=== PATIENT | female | born 1940 | race Two or more races ===

== ENCOUNTER 2022-05-27 15:44 | Inpatient (IN) | payer MEDICARE, OTHER ==
[~2022-05-27] VITALS: Ht 152.4 cm; Wt 52.6 kg
[2022-05-27 16:34] LABS: HEMATOCRIT 28.3 % (31.2-41.9); MEAN CORPUSCULAR HEMOGLOBIN 30.6 uug (24.7-32.8); MEAN CORPUSCULAR VOLUME 91.3 fL (75.5-95.3); PLATELET COUNT (AUTO) 349 K/uL (179-408)
[2022-05-27 16:37] LABS: CARBON DIOXIDE 27 mmol/L (21-32); CHLORIDE 101 mmol/L (98-107); CREATININE 1.7 mg/dL (0.6-1.3); GLUCOSE 116 mg/dL (74-106); POTASSIUM 4.2 mmol/L (3.5-5.1); UREA NITROGEN, BLOOD 29 mg/dL (7-18)
[2022-05-27 16:43] LABS: ALANINE AMINOTRANSFERASE 16 U/L (14-59); ALKALINE PHOSPHATASE 77 U/L (50-136); ASPARTATE AMINOTRANSFERASE 19 U/L (15-37); BILIRUBIN,DIRECT < 0.1 mg/dL (0.0-0.2); BILIRUBIN,TOTAL 0.3 mg/dL (0.2-1.0); TOTAL PROTEIN, SERUM 7.7 g/dL (6.4-8.2)
--- NOTE | 2022-05-27 17:02 | NUR ---
[employer] Professional assumes care:(1st contact with patient) Patient is AOx4 with tolerable pains to both flank tubes. Pains are intermittent in nature and only with position changes, afebrile, skin warm and dry, respiration: easy and non-labored. Patient is for admission per Dr Cortés to evaluate the possible non-functioning left nephrostomy tube. Tube at the left flank is leaking.
--- NOTE | 2022-05-27 17:19 | NUR ---
Note carmen in EDM - 05/27/22 at 1944 by PARKER Pt. admitted to meddical-surgical floor , under care of EBONI Watson. Belongings List completed. MRSA swab collected. Patient will go to room 320 as soon as nurse Sales will take nursing report.
--- NOTE | 2022-05-27 17:19 | NUR ---
Pt. admitted to medical-surgical floor , under care of EBONI Watson. Belongings List completed. MRSA swab collected. Patient will go to room 320 as soon as nurse Henrry will take nursing report.
[2022-05-27] MEDS ORDERED: MAGN400O6 PO (17:33)
[2022-05-27] MEDS ORDERED: RETACRIT SQ (17:33)
[2022-05-27] MEDS ORDERED: LOSA1TAB39 PO (17:33)
[2022-05-27] MEDS ORDERED: OXYC5TAB3 PO (17:33)
[2022-05-27] MEDS ORDERED: NA P133E RC (17:33)
[2022-05-27] MEDS ORDERED: CRAN425C6 PO (17:33)
[2022-05-27] MEDS ORDERED: DOCU100C36 PO (17:33)
[2022-05-27] MEDS ORDERED: PANT40TA2 PO (17:33)
[2022-05-27] MEDS ORDERED: LABE300T2 PO (17:33)
[2022-05-27] MEDS ORDERED: ALLO100T PO (17:33)
[2022-05-27] MEDS ORDERED: AMLO-212 PO (17:33)
[2022-05-27] MEDS ORDERED: BISA10SU61 RC (17:33)
[2022-05-27] MEDS ORDERED: AMIN30LI2 PO (17:33)
[2022-05-27] MEDS ORDERED: ATOR20TA PO (17:33)
[2022-05-27] MEDS ORDERED: ACET-2154 PO (17:33)
[2022-05-27] MEDS ORDERED: MORPHINE SULFATE 2 MG/1 ML DISP.SYRIN IM ONE (18:00)
[2022-05-27 18:20] VITALS: BP 103/45
[2022-05-27] MEDS ORDERED: REMEDY ESSENTIAL ZINC PASTE 113 GM TP PRN (19:00)
[2022-05-27] MEDS ORDERED: ACETAMINOPHEN 325 MG TABLET PO PRN (19:00)
[2022-05-27] MEDS ORDERED: MAGNESIUM HYDROXIDE 30 ML LIQUID UDC PO PRN (19:00)
[2022-05-27] MEDS ORDERED: ZOLPIDEM 5 MG TABLET PO PRN (19:00)
[2022-05-27] MEDS ORDERED: ONDANSETRON 4 MG/2 ML VIAL IV PRN (19:00)
[2022-05-27] MEDS ORDERED: OXYCODONE HCL 5 MG TABLET PO PRN (19:00)
--- NOTE | 2022-05-27 19:48 | NUR ---
RECEIVED REPORT FROM AURE DELEON FROM ER DEPARTMENT AT 1724PM. RN RECEIVED PATIENT AT 1815 PM. PATIENT IS ALERT & ORIENTED X4, AND SPEAKS TELUGU. VITAL SIGNS STABLE. PATIENT DENIES PAIN. PATIENTS TREJO CATHETER IS INTACT, PATENT AND DRAINING. RN NOTES LEFT NEPHROSTOMY TUBE LEAKING. ADMISSION DOCUMENTATION COMPLETED. RN ORIENTS PATIENT TO UNIT. PATIENT VERBALIZES UNDERSTANDING. NO ACUTE DISTRESS NOTED. FALL PRECAUTIONS OBSERVED. ALL NEEDS MET AT THIS TIME. ENDORSED CARE TO AURE HILL, FOR CONTINUATION OF CARE.
[2022-05-27 20:00] VITALS: BP 95/49
[2022-05-27] MEDS: ATORVASTATIN 20 MG TABLET PO SCH (21:00)
[2022-05-27] MEDS: HEPARIN SODIUM,PORCINE 5,000 UNITS/ML VIAL SQ SCH (21:04)
[2022-05-27] MEDS: IV NS 1000 ML 1,000 ML IV PRN (21:08)
[2022-05-28 04:00] VITALS: BP 111/50
--- NOTE | 2022-05-28 05:45 | NUR ---
Collected urine from both nephrostomy tube and benavides cath for urinalysis. Submitted to the lab. Noted cloudy, sedimentation and foul odor on urine.
[2022-05-28 06:14] LABS: *CLARITY,URINE CLOUDY (CLEAR); *COLOR,URINE YELLOW (YELLOW)
[2022-05-28 06:15] LABS: *BILIRUBIN,URIN NEGATIVE (NEGATIVE); *BLOOD, URINE 2+ (NEGATIVE); *KETONES,URINE NEGATIVE (NEGATIVE); *UROBILINOGEN,URINE 0.2 E.U./dl (NORMAL); UGLUCOSE NEGATIVE (NEGATIVE)
[2022-05-28 06:16] LABS: LEUKOCYTE ESTERASE ,URINE 3+ (NEGATIVE); NITRITE, URINE POSITIVE (NEGATIVE)
[2022-05-28 06:19] LABS: BACTERIA,URINE FEW /HPF (NONE SEEN); RBC,URINE TNTC /HPF (0-3); SQUAMOUS EPITHELIAL CELL,UR MANY /HPF (NONE SEEN); WBC,URINE TNTC /HPF (0-3)
[2022-05-28 06:30] LABS: *CLARITY,URINE CLOUDY (CLEAR); *COLOR,URINE YELLOW (YELLOW)
[2022-05-28 06:31] LABS: *BILIRUBIN,URIN NEGATIVE (NEGATIVE); *BLOOD, URINE 3+ (NEGATIVE); *KETONES,URINE NEGATIVE (NEGATIVE); *UROBILINOGEN,URINE 0.2 E.U./dl (NORMAL); UGLUCOSE NEGATIVE (NEGATIVE)
[2022-05-28 06:32] LABS: LEUKOCYTE ESTERASE ,URINE 2+ (NEGATIVE); NITRITE, URINE NEGATIVE (NEGATIVE)
[2022-05-28 06:37] LABS: BACTERIA,URINE MANY /HPF (NONE SEEN); RBC,URINE 80-100 /HPF (0-3); WBC,URINE TNTC /HPF (0-3)
[2022-05-28 06:38] LABS: SQUAMOUS EPITHELIAL CELL,UR FEW /HPF (NONE SEEN)
[2022-05-28 06:43] LABS: *CLARITY,URINE CLOUDY (CLEAR); *COLOR,URINE YELLOW (YELLOW); PH,URINE 6.5 (5.0-8.0)
[2022-05-28 06:44] LABS: *BILIRUBIN,URIN NEGATIVE (NEGATIVE); *BLOOD, URINE 3+ (NEGATIVE); *KETONES,URINE NEGATIVE (NEGATIVE); *UROBILINOGEN,URINE 0.2 E.U./dl (NORMAL); LEUKOCYTE ESTERASE ,URINE 2+ (NEGATIVE); NITRITE, URINE NEGATIVE (NEGATIVE); UGLUCOSE NEGATIVE (NEGATIVE)
[2022-05-28 06:47] LABS: HEMATOCRIT 26.6 % (31.2-41.9); MEAN CORPUSCULAR HEMOGLOBIN 30.9 uug (24.7-32.8); MEAN CORPUSCULAR VOLUME 91.6 fL (75.5-95.3); PLATELET COUNT (AUTO) 320 K/uL (179-408)
[2022-05-28 06:49] LABS: RBC,URINE TNTC /HPF (0-3); WBC,URINE TNTC /HPF (0-3)
[2022-05-28 06:50] LABS: BACTERIA,URINE FEW /HPF (NONE SEEN); SQUAMOUS EPITHELIAL CELL,UR MANY /HPF (NONE SEEN)
[2022-05-28 07:02] LABS: CARBON DIOXIDE 26 mmol/L (21-32); CHLORIDE 104 mmol/L (98-107); CREATININE 1.7 mg/dL (0.6-1.3); GLUCOSE 105 mg/dL (74-106); MAGNESIUM 2.1 mg/dL (1.8-2.4); UREA NITROGEN, BLOOD 26 mg/dL (7-18)
[2022-05-28 07:20] LABS: IRON, SERUM 35 ug/dL (50-175)
[2022-05-28] MEDS ORDERED: Medication Not On Formulary EA (Cranberry Extract (Cranberry) 425 MG) PO SCH (09:00)
[2022-05-28] MEDS ORDERED: PANTOPRAZOLE SODIUM 40 MG VIAL IV SCH (09:00)
[2022-05-28] MEDS: AMLODIPINE 5 MG TABLET PO SCH (09:00)
[2022-05-28] MEDS ORDERED: Medication Not On Formulary EA (Losartan/Hydrochlorothiazide (Losartan-Hctz 100-25 Mg Ta PO SCH (09:00)
[2022-05-28] MEDS: LABETALOL HCL 100 MG TABLET PO SCH (09:00)
[2022-05-28] MEDS: ALLOPURINOL 100 MG TABLET PO SCH ×2 (09:21→18:03)
[2022-05-28] MEDS: DOCUSATE SODIUM 100 MG CAPSULE PO SCH (09:21)
[2022-05-28] MEDS: LOSARTAN POTASSIUM 50 MG TABLET PO SCH (09:21)
[2022-05-28] MEDS: HYDROCHLOROTHIAZIDE 25 MG TABLET PO SCH (09:21)
[2022-05-28] MEDS: PROTEIN SUPPLEMENT (PROSTAT) 30 ML LIQUID PO SCH (09:39)
[2022-05-28] MEDS: HEPARIN SODIUM,PORCINE 5,000 UNITS/ML VIAL SQ SCH ×2 (09:41→20:22)
[2022-05-28 11:56] VITALS: BP 108/54
[2022-05-28] MEDS: CEFTRIAXONE 1 G in IV DEXTROSE 5% 50 ML IV SCH (13:24)
[2022-05-28] MEDS: IV NS 1000 ML 1,000 ML IV PRN (13:43)
--- NOTE | 2022-05-28 15:55 | NUR ---
Leakage noted on both Nephrostomy tube. Dr. Watson notified, he is getting a Nephrology consult to discontinue. So for now he instructed just dressing changes.
[2022-05-28 17:05] VITALS: BP 110/53
[2022-05-28] MEDS ORDERED: Medication Not On Formulary EA (Amino Acids/Protein Hydrolys (Pro-Stat Liquid) 30 ML) PO SCH (18:00)
--- NOTE | 2022-05-28 19:30 | NUR ---
Received patient lying in bed. AAOx4. In no acute distress. Denies any pain or SOB. PICC line on right upper arm intact and patent. IVF infusing. Bazan catheter intact and draining via gravity. Nephrostomy tube on right side not leaking. Left side still leaking. Will change dressing. Needs assessed and attended to. Safety measure initiated and call light within reached.
[2022-05-28] MEDS: ATORVASTATIN 20 MG TABLET PO SCH (20:21)
[2022-05-28 20:42] VITALS: BP 122/54
[2022-05-29] MEDS: IV NS 1000 ML 1,000 ML IV PRN (03:36)
[2022-05-29 04:13] VITALS: BP 110/55
--- NOTE | 2022-05-29 05:18 | NUR ---
In no apparent distress. Stated she slept well. Changed nephrostomy dressing on left side x3, severe leakage noted. Right side changex1 only. Bazan catheter draining well. Denies any pain or discomfort. IVF infusing. Other needs assessed and attended to. Safety measure maintained and call light within reached.
[2022-05-29 07:01] LABS: HEMATOCRIT 26.3 % (31.2-41.9); MEAN CORPUSCULAR HEMOGLOBIN 31.3 uug (24.7-32.8); PLATELET COUNT (AUTO) 306 K/uL (179-408)
[2022-05-29 07:32] LABS: CARBON DIOXIDE 23 mmol/L (21-32); CHLORIDE 107 mmol/L (98-107); CREATININE 1.5 mg/dL (0.6-1.3); GLUCOSE 106 mg/dL (74-106); MAGNESIUM 1.9 mg/dL (1.8-2.4); POTASSIUM 4.2 mmol/L (3.5-5.1); UREA NITROGEN, BLOOD 22 mg/dL (7-18)
[2022-05-29] MEDS: PROTEIN SUPPLEMENT (PROSTAT) 30 ML LIQUID PO SCH (08:00)
[2022-05-29] MEDS: AMLODIPINE 5 MG TABLET PO SCH (09:00)
[2022-05-29] MEDS: LABETALOL HCL 100 MG TABLET PO SCH (09:00)
[2022-05-29] MEDS: LOSARTAN POTASSIUM 50 MG TABLET PO SCH (09:00)
[2022-05-29] MEDS: HYDROCHLOROTHIAZIDE 25 MG TABLET PO SCH (09:00)
[2022-05-29] MEDS: HEPARIN SODIUM,PORCINE 5,000 UNITS/ML VIAL SQ SCH ×2 (09:51→20:21)
[2022-05-29] MEDS: ALLOPURINOL 100 MG TABLET PO SCH ×2 (09:52→16:33)
[2022-05-29] MEDS: PANTOPRAZOLE ORAL SUSPENSION 40 MG SUSPDR.PKT PO SCH (09:52)
[2022-05-29] MEDS: DOCUSATE SODIUM 100 MG CAPSULE PO SCH (09:53)
[2022-05-29 12:03] VITALS: BP 113/56
[2022-05-29] MEDS ORDERED: IOHEXOL 300MG/ML 100 ML INFUS..BTL ONE (12:53)
--- NOTE | 2022-05-29 13:28 | NUR ---
1328 PT off unit for CT
[2022-05-29] MEDS: CEFTRIAXONE 1 G in IV DEXTROSE 5% 50 ML IV SCH (14:49)
[2022-05-29 15:50] VITALS: BP 120/57
--- NOTE | 2022-05-29 16:34 | NUR ---
1700 Allopurinol not given. pt off unit to Franko Hollins
--- NOTE | 2022-05-29 19:35 | NUR ---
Received patient lying in bed. AAOx4. In no acute distress. No complain of pain or SOB. PICC line on right upper arm intact and patent. IVF infusing. Bazan catheter intact and draining via gravity. Nephrostomy tube on right side with leakage noted will change dressing. Left side nephrostomy with drainage bag in place. Will continue to monitor. Safety measure initiated and call light within reached.
[2022-05-29 20:15] VITALS: BP 109/54
[2022-05-29] MEDS: ATORVASTATIN 20 MG TABLET PO SCH (20:21)
[2022-05-30 04:40] VITALS: BP 142/65
--- NOTE | 2022-05-30 05:10 | NUR ---
In no acute distress. Nephrostomy site on left with 300ml output. Right side leaking and dressing change PRN. Complain of pain on right side during mobility, relieve with rest. Offered pain medication but pt refused. F/C intact and draining via gravity. Safety measure maintained and call light within reached.
[2022-05-30 06:59] LABS: HEMATOCRIT 26.9 % (31.2-41.9); MEAN CORPUSCULAR HEMOGLOBIN 30.8 uug (24.7-32.8); MEAN CORPUSCULAR VOLUME 91.7 fL (75.5-95.3); PLATELET COUNT (AUTO) 296 K/uL (179-408)
[2022-05-30] MEDS: PROTEIN SUPPLEMENT (PROSTAT) 30 ML LIQUID PO SCH (08:00)
[2022-05-30] MEDS: PANTOPRAZOLE ORAL SUSPENSION 40 MG SUSPDR.PKT PO SCH (09:00)
[2022-05-30] MEDS: LABETALOL HCL 100 MG TABLET PO SCH (09:00)
[2022-05-30] MEDS: DOCUSATE SODIUM 100 MG CAPSULE PO SCH (09:04)
[2022-05-30] MEDS: LOSARTAN POTASSIUM 50 MG TABLET PO SCH (09:05)
[2022-05-30] MEDS: ALLOPURINOL 100 MG TABLET PO SCH ×2 (09:06→17:48)
[2022-05-30] MEDS: HYDROCHLOROTHIAZIDE 25 MG TABLET PO SCH (09:06)
[2022-05-30] MEDS: AMLODIPINE 5 MG TABLET PO SCH (09:07)
[2022-05-30] MEDS: HEPARIN SODIUM,PORCINE 5,000 UNITS/ML VIAL SQ SCH ×2 (11:19→20:25)
[2022-05-30 11:22] LABS: CARBON DIOXIDE 23 mmol/L (21-32); CHLORIDE 107 mmol/L (98-107); GLUCOSE 90 mg/dL (74-106); POTASSIUM 3.7 mmol/L (3.5-5.1)
[2022-05-30 11:23] LABS: CREATININE 1.5 mg/dL (0.6-1.3); MAGNESIUM 1.8 mg/dL (1.8-2.4); UREA NITROGEN, BLOOD 19 mg/dL (7-18)
[2022-05-30 11:50] VITALS: BP 131/53
[2022-05-30] MEDS: CEFTRIAXONE 1 G in IV DEXTROSE 5% 50 ML IV SCH (12:50)
[2022-05-30 15:39] VITALS: BP 136/55
--- NOTE | 2022-05-30 19:48 | NUR ---
Received patient lying in bed. AAOx4. In no acute distress. PICC line on right upper arm intact and patent. IVF infusing. Bazan catheter intact and draining via gravity. Nephrostomy tube on right side with dressing clean, dry and intact. Left side nephrostomy with drainage bag in place. Safety measure initiated and call light within reached.
[2022-05-30 20:00] VITALS: BP 104/55
--- NOTE | 2022-05-30 20:18 | NUR ---
SHIFT NOTE: RECEIVED PT ALERT AND ORIENTED X4 PT GIVEN MEDICATION ORDERED NO SIGNS OF ADVERSE REACTION NOTED PT RT NEPROSTOMY DRAIN HAD OUT PUT OF 500ML PT DENIES PAIN. PT LT SIDE HAS LESS DRAINAGE AREA IS PINK AND NO DRAINAGE OR ODOR TOLERATED WELL ASSISTED WITH DIAPER CHANGE ALONG WITH LINEN. PT HAS IVF OF NS INFUSING AT 75ML AND HOUR TOLERATING WELL NO SIGNS OF INFILTRATION NOTED WILL CONTINUE TO MONITOR FOR SAFETY AND FALLS. ENDORSE TO NIGHT NURSE REX
[2022-05-30] MEDS: ATORVASTATIN 20 MG TABLET PO SCH (20:25)
--- NOTE | 2022-05-30 22:38 | NUR ---
Dr Davidson into visit and seen patient, with order to place nephrostomy tube drainage system on right side and carried out.
[2022-05-31] MEDS: IV NS 1000 ML 1,000 ML IV PRN ×2 (00:29→17:55)
--- NOTE | 2022-05-31 05:15 | NUR ---
Nephrostomy tube with drainage bag remains intact. No further leaking noted on both sides. 200ml drainage on right and 320 on left. Bazan catheter remains intact and patent. Denies any pain or SOB. IVF infusing. Needs attended to and met. Safety measure maintained and call light within reached.
[2022-05-31 06:00] VITALS: BP 102/55
[2022-05-31 07:14] LABS: HEMATOCRIT 26.5 % (31.2-41.9); MEAN CORPUSCULAR HEMOGLOBIN 31.3 uug (24.7-32.8); PLATELET COUNT (AUTO) 293 K/uL (179-408)
[2022-05-31 07:35] LABS: CARBON DIOXIDE 26 mmol/L (21-32); CHLORIDE 108 mmol/L (98-107); CREATININE 1.3 mg/dL (0.6-1.3); GLUCOSE 104 mg/dL (74-106); MAGNESIUM 1.7 mg/dL (1.8-2.4); POTASSIUM 3.9 mmol/L (3.5-5.1); UREA NITROGEN, BLOOD 18 mg/dL (7-18)
[2022-05-31] MEDS: PROTEIN SUPPLEMENT (PROSTAT) 30 ML LIQUID PO SCH (08:00)
[2022-05-31] MEDS: DOCUSATE SODIUM 100 MG CAPSULE PO SCH ×2 (10:00→11:18)
[2022-05-31 10:59] VITALS: BP 119/59
[2022-05-31] MEDS ORDERED: MAGNESIUM OXIDE 400 MG TABLET PO ONE (11:00)
[2022-05-31] MEDS: ALLOPURINOL 100 MG TABLET PO SCH ×2 (11:16→17:07)
[2022-05-31] MEDS: LOSARTAN POTASSIUM 50 MG TABLET PO SCH (11:16)
[2022-05-31] MEDS: PANTOPRAZOLE ORAL SUSPENSION 40 MG SUSPDR.PKT PO SCH (11:16)
[2022-05-31] MEDS: LABETALOL HCL 100 MG TABLET PO SCH (11:17)
[2022-05-31] MEDS: HYDROCHLOROTHIAZIDE 25 MG TABLET PO SCH (11:18)
[2022-05-31] MEDS: AMLODIPINE 5 MG TABLET PO SCH (11:19)
[2022-05-31] MEDS: HEPARIN SODIUM,PORCINE 5,000 UNITS/ML VIAL SQ SCH ×2 (11:23→20:20)
[2022-05-31] MEDS: CEFTRIAXONE 1 G in IV DEXTROSE 5% 50 ML IV SCH (12:10)
[2022-05-31 16:29] VITALS: BP 111/40
--- NOTE | 2022-05-31 19:26 | NUR ---
SHIFT NOTE: RECEIVED REPORT FROM AM NURSE GOODMAN PT IS ALERT AND ORIENTED X4 HAS RT AND LEFT NEPHROSTOMY TUBING DRAINAGE IS CLEAR FROM RT AND LT TUBING WITH PATIENT TOLERATING WELL DENIES PAIN PATIENT GIVEN MEDICATION ORDERED AND MEDICATION GIVEN ORDERED WITH NO ADVERSE REACTION. PT RT MIDLINE INFILTRATED AND ANOTHER LINE WAS INSERTED IN LEFT UPPER ARM AND A PERIPHERAL LINE IN LT LOWER ARM 22G. PT HAS IVF OF NS INFUSING AT 75ML/HR NURSE TO TAKE CREDIT FOR WHOLE BAG. PT HAS ORDERS TO CLAMPED RT AND LT NEPHROSTOMY TUBING AFTER 12 HOURS.TAKE US AND BMP ENDORSED TO AM NURSE GOODMAN.
[2022-05-31 19:30] VITALS: BP 119/61
--- NOTE | 2022-05-31 19:36 | NUR ---
Received patient lying in bed. AAOx4. In no acute distress. Denies any pain or SOB. Nephrostomy tube on both right and left with drainage bag intact. Will clamp at [address] Garcia's order for US david am. Patient states understanding of plan. Midline on left upper arm and PIV on left FA intact and patent. IVF infusing. Bazan catheter intact and draining via gravity. Safety measure initiated and call light within reached.
[2022-05-31] MEDS: ATORVASTATIN 20 MG TABLET PO SCH (20:20)
--- NOTE | 2022-05-31 22:00 | NUR ---
Clamp both nephrostomy tube. Obtained 300cc of drainage on left side and 500cc on right side before clamping.
[2022-06-01 03:49] VITALS: BP 104/50
[2022-06-01 07:36] LABS: HEMATOCRIT 27.2 % (31.2-41.9); MEAN CORPUSCULAR HEMOGLOBIN 31.5 uug (24.7-32.8); MEAN CORPUSCULAR VOLUME 91.6 fL (75.5-95.3); PLATELET COUNT (AUTO) 278 K/uL (179-408)
[2022-06-01 08:20] LABS: CREATININE 1.3 mg/dL (0.6-1.3); MAGNESIUM 1.7 mg/dL (1.8-2.4); PHOSPHOROUS 3.6 mg/dL (2.5-4.9); POTASSIUM 3.8 mmol/L (3.5-5.1)
[2022-06-01] MEDS ORDERED: MAGNESIUM OXIDE 400 MG TABLET PO ONE (09:30)
[2022-06-01] MEDS: DOCUSATE SODIUM 100 MG CAPSULE PO SCH (09:47)
[2022-06-01] MEDS: PANTOPRAZOLE ORAL SUSPENSION 40 MG SUSPDR.PKT PO SCH (09:48)
[2022-06-01] MEDS: HEPARIN SODIUM,PORCINE 5,000 UNITS/ML VIAL SQ SCH ×2 (09:48→21:05)
[2022-06-01] MEDS: PROTEIN SUPPLEMENT (PROSTAT) 30 ML LIQUID PO SCH (09:53)
[2022-06-01] MEDS: ALLOPURINOL 100 MG TABLET PO SCH ×2 (09:54→17:09)
[2022-06-01] MEDS: HYDROCHLOROTHIAZIDE 25 MG TABLET PO SCH (09:57)
[2022-06-01] MEDS: AMLODIPINE 5 MG TABLET PO SCH (09:57)
[2022-06-01] MEDS: LOSARTAN POTASSIUM 50 MG TABLET PO SCH (09:57)
[2022-06-01] MEDS: LABETALOL HCL 100 MG TABLET PO SCH (09:58)
[2022-06-01 10:24] LABS: CREATININE 1.3 mg/dL (0.6-1.3)
[2022-06-01] MEDS ORDERED: levoFLOXacin 250 MG TABLET PO SCH (10:33)
[2022-06-01 12:00] VITALS: BP 94/55
[2022-06-01 16:00] VITALS: BP 83/48
[2022-06-01] MEDS ORDERED: IV NORMAL SALINE 1000 ML BAG IV ONE (16:15)
[2022-06-01] MEDS ORDERED: IV NS 1000 ML 1,000 ML IV ONE (16:30)
--- NOTE | 2022-06-01 19:34 | NUR ---
NSG: Received patient lying in bed. alert and oriented x 4. No complain of pain or SOB. midline line on left upper arm intact and patent. IVF infusing freely. Bazan catheter intact and draining yellow urine via gravity. Nephrostomy tube on right side with leakage noted covered with dressing. Left side nephrostomy with drainage bag in place. Will continue to monitor. Safety measure initiated and call light within reached.
[2022-06-01 20:20] VITALS: BP 98/47
[2022-06-01] MEDS: ATORVASTATIN 20 MG TABLET PO SCH (21:04)
[2022-06-01] MEDS: DOXYCYCLINE HYCLATE 100 MG TABLET PO SCH (21:04)
[2022-06-01] MEDS: IV NS 1000 ML 1,000 ML IV PRN (23:07)
[2022-06-02 04:24] VITALS: BP 108/49
--- NOTE | 2022-06-02 04:48 | NUR ---
nsg: right nephrostomy out put 1000 ml amd left nephrostomy out put 375 ml . patient has large bm. assisted with adl's.
[2022-06-02] MEDS: PANTOPRAZOLE ORAL SUSPENSION 40 MG SUSPDR.PKT PO SCH (05:36)
[2022-06-02] MEDS: levoFLOXacin 750 MG TABLET PO SCH (05:36)
[2022-06-02] MEDS ORDERED: levoFLOXacin 250 MG TABLET PO SCH (06:00)
--- NOTE | 2022-06-02 06:39 | NUR ---
NSG: Remain calm and cooperative with meds. no c/o pain or discomfort at this time. bilat nephrostomy tube intact good amount output noted. f/c patent. No s/s of physical or respiratory distress. Encouraged patient to use call light for help when needed with good understanding.call light w/in reach.
[2022-06-02 07:45] LABS: MEAN CORPUSCULAR HEMOGLOBIN 31.1 uug (24.7-32.8); PLATELET COUNT (AUTO) 247 K/uL (179-408)
[2022-06-02 07:56] LABS: CREATININE 1.3 mg/dL (0.6-1.3); MAGNESIUM 1.8 mg/dL (1.8-2.4); PHOSPHOROUS 3.5 mg/dL (2.5-4.9); POTASSIUM 4.1 mmol/L (3.5-5.1)
[2022-06-02] MEDS: LOSARTAN POTASSIUM 50 MG TABLET PO SCH ×2 (09:00→09:18)
[2022-06-02] MEDS: LABETALOL HCL 100 MG TABLET PO SCH (09:00)
[2022-06-02] MEDS: PROTEIN SUPPLEMENT (PROSTAT) 30 ML LIQUID PO SCH (09:08)
[2022-06-02] MEDS: AMLODIPINE 5 MG TABLET PO SCH (09:17)
[2022-06-02] MEDS: ALLOPURINOL 100 MG TABLET PO SCH ×2 (09:17→17:11)
[2022-06-02] MEDS: HYDROCHLOROTHIAZIDE 25 MG TABLET PO SCH (09:21)
[2022-06-02] MEDS: DOXYCYCLINE HYCLATE 100 MG TABLET PO SCH ×2 (09:21→20:47)
[2022-06-02] MEDS: HEPARIN SODIUM,PORCINE 5,000 UNITS/ML VIAL SQ SCH ×2 (09:22→20:48)
[2022-06-02 11:25] VITALS: BP 103/57
[2022-06-02 15:48] VITALS: BP 119/53
--- NOTE | 2022-06-02 19:45 | NUR ---
RECEIVED PATIENT AWAKE IN BED. A/O X4. DENIES ANY PAIN OR DISCOMFORT AT THIS TIME. JUST C/O DISCOMFORT AROUND NEPHROSTOMY TUBE SITE. NO RESP. DISTRESS NOTED. BILATERAL NEPHROSTOMY BAGS NOTED WITH YELLOW COLORED FLUID NOTED IN BAG. MID-LINE INTACT AND PATENT. CALL LIGHT IN REACH. ALL ATTENDED. WILL CONTINUE TO MONITOR AND ASSESS.
[2022-06-02 20:30] VITALS: BP 119/53
[2022-06-02] MEDS: ATORVASTATIN 20 MG TABLET PO SCH (20:47)
[2022-06-02] MEDS: diphenhydrAMINE 50 MG CAPSULE PO PRN (20:47)
--- NOTE | 2022-06-02 21:00 | NUR ---
LEFT NEPHROSTOMY TUBE EMPTIED AND RECEIVED 150cc OF YELLOW URINE AND RIGHT TUBE EMPTIED 650cc LIGHT YELLOW URINE. ALL NEEDS ATTENDED.
[2022-06-03 05:09] VITALS: BP 118/55
[2022-06-03 06:40] LABS: MEAN CORPUSCULAR HEMOGLOBIN 31.3 uug (24.7-32.8); MEAN CORPUSCULAR VOLUME 91.8 fL (75.5-95.3); PLATELET COUNT (AUTO) 260 K/uL (179-408)
[2022-06-03 07:12] LABS: ALANINE AMINOTRANSFERASE 32 U/L (14-59); ALKALINE PHOSPHATASE 63 U/L (50-136); ASPARTATE AMINOTRANSFERASE 25 U/L (15-37); BILIRUBIN,TOTAL 0.2 mg/dL (0.2-1.0); CARBON DIOXIDE 25 mmol/L (21-32); CHLORIDE 106 mmol/L (98-107); CREATININE 1.5 mg/dL (0.6-1.3); GLUCOSE 107 mg/dL (74-106); MAGNESIUM 1.7 mg/dL (1.8-2.4); PHOSPHOROUS 4.4 mg/dL (2.5-4.9); TOTAL PROTEIN, SERUM 7.2 g/dL (6.4-8.2); UREA NITROGEN, BLOOD 19 mg/dL (7-18)
[2022-06-03 08:00] VITALS: BP 117/58
[2022-06-03] MEDS: PROTEIN SUPPLEMENT (PROSTAT) 30 ML LIQUID PO SCH (08:00)
[2022-06-03] MEDS: PANTOPRAZOLE ORAL SUSPENSION 40 MG SUSPDR.PKT PO SCH (09:00)
[2022-06-03] MEDS: AMLODIPINE 5 MG TABLET PO SCH (09:00)
[2022-06-03] MEDS: LOSARTAN POTASSIUM 50 MG TABLET PO SCH (09:00)
[2022-06-03] MEDS: LABETALOL HCL 100 MG TABLET PO SCH (09:00)
[2022-06-03] MEDS ORDERED: MAGNESIUM OXIDE 400 MG TABLET PO ONE (10:00)
[2022-06-03] MEDS: DOCUSATE SODIUM 100 MG CAPSULE PO SCH (10:25)
[2022-06-03] MEDS: DOXYCYCLINE HYCLATE 100 MG TABLET PO SCH ×3 (10:27→21:34)
[2022-06-03] MEDS: ALLOPURINOL 100 MG TABLET PO SCH ×2 (10:28→17:25)
[2022-06-03] MEDS: HEPARIN SODIUM,PORCINE 5,000 UNITS/ML VIAL SQ SCH ×3 (10:33→21:34)
[2022-06-03 11:00] VITALS: BP 138/61
[2022-06-03 16:00] VITALS: BP 113/58
--- NOTE | 2022-06-03 16:23 | NUR ---
SHIFT NOTE: RECEIVED PATIENT ALERT AND ORIENTED X4 PT WAS GIVEN MEDICATION ORDERED. IV D/C AND SINCE PT DRINKING ORAL FLUIDS. PT WASN'T GIVEN B/P MEDICATION B/P WAS LOW NO SIGNS ADVERSE REACTION FROM MEDICATION AND NO SIGNS OF DISTRESS NOTED. PT NEPROSTOMY TUBE DRAINED 450ML FROM RIGHT AND 300 FROM LEFT AT 1200 PM. DRESSING AT NOON IS DRY AND INTACT WILL CHECKED LATER.
--- NOTE | 2022-06-03 18:50 | NUR ---
PT 0800 RESPIRATORY WAS CHARTED INACCURATE IT IS 20 INSTEAD OF 95
[2022-06-03 20:35] VITALS: BP 109/60
[2022-06-03] MEDS: ATORVASTATIN 20 MG TABLET PO SCH (20:56)
[2022-06-04 05:28] VITALS: BP 116/64
[2022-06-04] MEDS: levoFLOXacin 750 MG TABLET PO SCH (05:42)
[2022-06-04 06:22] LABS: MEAN CORPUSCULAR HEMOGLOBIN 30.9 uug (24.7-32.8); MEAN CORPUSCULAR VOLUME 91.5 fL (75.5-95.3); PLATELET COUNT (AUTO) 281 K/uL (179-408)
[2022-06-04 06:40] LABS: ALANINE AMINOTRANSFERASE 39 U/L (14-59); ALKALINE PHOSPHATASE 67 U/L (50-136); ASPARTATE AMINOTRANSFERASE 30 U/L (15-37); BILIRUBIN,TOTAL 0.3 mg/dL (0.2-1.0); CARBON DIOXIDE 26 mmol/L (21-32); CHLORIDE 104 mmol/L (98-107); CREATININE 1.6 mg/dL (0.6-1.3); GLUCOSE 104 mg/dL (74-106); PHOSPHOROUS 4.2 mg/dL (2.5-4.9); POTASSIUM 4.2 mmol/L (3.5-5.1); TOTAL PROTEIN, SERUM 7.6 g/dL (6.4-8.2); UREA NITROGEN, BLOOD 23 mg/dL (7-18)
[2022-06-04 07:42] LABS: MAGNESIUM 1.7 mg/dL (1.8-2.4)
[2022-06-04] MEDS: PANTOPRAZOLE ORAL SUSPENSION 40 MG SUSPDR.PKT PO SCH (08:29)
[2022-06-04] MEDS: DOXYCYCLINE HYCLATE 100 MG TABLET PO SCH ×2 (08:29→20:29)
[2022-06-04] MEDS: ALLOPURINOL 100 MG TABLET PO SCH ×2 (08:30→17:29)
[2022-06-04] MEDS: HEPARIN SODIUM,PORCINE 5,000 UNITS/ML VIAL SQ SCH ×2 (08:30→20:29)
[2022-06-04] MEDS: DOCUSATE SODIUM 100 MG CAPSULE PO SCH (08:30)
[2022-06-04] MEDS: AMLODIPINE 5 MG TABLET PO SCH (08:33)
[2022-06-04] MEDS: LABETALOL HCL 100 MG TABLET PO SCH (08:35)
[2022-06-04] MEDS: PROTEIN SUPPLEMENT (PROSTAT) 30 ML LIQUID PO SCH (08:36)
[2022-06-04] MEDS ORDERED: MAGNESIUM SULFATE/D5W 100 ML IV SCH (10:00)
[2022-06-04 11:31] VITALS: BP 101/53
[2022-06-04 16:22] VITALS: BP 110/53
[2022-06-04] MEDS: ENSURE CLEAR 240 ML LIQUID (MIX BERRY) PO SCH (17:29)
[2022-06-04] MEDS: ATORVASTATIN 20 MG TABLET PO SCH (20:29)
[2022-06-04 20:45] VITALS: BP 103/56
[2022-06-04] MEDS: diphenhydrAMINE 50 MG CAPSULE PO PRN (23:46)
[2022-06-05 04:31] VITALS: BP 102/53
[2022-06-05 07:15] LABS: HEMATOCRIT 29.1 % (31.2-41.9); MEAN CORPUSCULAR HEMOGLOBIN 31.2 uug (24.7-32.8); MEAN CORPUSCULAR VOLUME 91.7 fL (75.5-95.3); PLATELET COUNT (AUTO) 285 K/uL (179-408)
[2022-06-05 07:34] LABS: ALANINE AMINOTRANSFERASE 38 U/L (14-59); ALKALINE PHOSPHATASE 69 U/L (50-136); ASPARTATE AMINOTRANSFERASE 25 U/L (15-37); BILIRUBIN,TOTAL 0.3 mg/dL (0.2-1.0); CARBON DIOXIDE 25 mmol/L (21-32); CHLORIDE 106 mmol/L (98-107); CREATININE 1.7 mg/dL (0.6-1.3); GLUCOSE 109 mg/dL (74-106); MAGNESIUM 1.9 mg/dL (1.8-2.4); PHOSPHOROUS 4.4 mg/dL (2.5-4.9); POTASSIUM 3.9 mmol/L (3.5-5.1); TOTAL PROTEIN, SERUM 7.8 g/dL (6.4-8.2); UREA NITROGEN, BLOOD 25 mg/dL (7-18)
[2022-06-05] MEDS: DOXYCYCLINE HYCLATE 100 MG TABLET PO SCH (09:00)
[2022-06-05] MEDS: AMLODIPINE 5 MG TABLET PO SCH (09:00)
[2022-06-05] MEDS: DOCUSATE SODIUM 100 MG CAPSULE PO SCH (09:00)
[2022-06-05] MEDS: LABETALOL HCL 100 MG TABLET PO SCH (09:00)
[2022-06-05] MEDS: PANTOPRAZOLE ORAL SUSPENSION 40 MG SUSPDR.PKT PO SCH (09:01)
[2022-06-05] MEDS: ALLOPURINOL 100 MG TABLET PO SCH ×2 (09:05→17:15)
[2022-06-05] MEDS: HEPARIN SODIUM,PORCINE 5,000 UNITS/ML VIAL SQ SCH ×2 (09:08→20:24)
[2022-06-05] MEDS: ENSURE CLEAR 240 ML LIQUID (MIX BERRY) PO SCH (09:19)
[2022-06-05] MEDS: PROTEIN SUPPLEMENT (PROSTAT) 30 ML LIQUID PO SCH (09:22)
[2022-06-05 11:49] VITALS: BP 92/54
[2022-06-05 16:50] VITALS: BP 90/50
--- NOTE | 2022-06-05 19:13 | NUR ---
Talked to the daughter and explained the situation why nephrostomy tube will not be removed today. FAmily verbalized understanding but request an update if there are some changes. Pt . edwin.
[2022-06-05 20:00] VITALS: BP 118/66
[2022-06-05] MEDS: ATORVASTATIN 20 MG TABLET PO SCH (20:25)
[2022-06-06 04:00] VITALS: BP 103/61
[2022-06-06] MEDS: levoFLOXacin 750 MG TABLET PO SCH (05:26)
[2022-06-06 07:54] LABS: CARBON DIOXIDE 25 mmol/L (21-32); CHLORIDE 103 mmol/L (98-107); CREATININE 1.7 mg/dL (0.6-1.3); GLUCOSE 104 mg/dL (74-106); POTASSIUM 4.3 mmol/L (3.5-5.1); UREA NITROGEN, BLOOD 31 mg/dL (7-18)
[2022-06-06] MEDS: ENSURE CLEAR 240 ML LIQUID (MIX BERRY) PO SCH (08:00)
[2022-06-06] MEDS: PROTEIN SUPPLEMENT (PROSTAT) 30 ML LIQUID PO SCH (08:00)
[2022-06-06] MEDS: PANTOPRAZOLE ORAL SUSPENSION 40 MG SUSPDR.PKT PO SCH (09:37)
[2022-06-06] MEDS: ALLOPURINOL 100 MG TABLET PO SCH ×2 (09:37→17:29)
[2022-06-06] MEDS: HEPARIN SODIUM,PORCINE 5,000 UNITS/ML VIAL SQ SCH ×2 (09:42→20:34)
[2022-06-06] MEDS: LABETALOL HCL 100 MG TABLET PO SCH (09:49)
[2022-06-06] MEDS: DOCUSATE SODIUM 100 MG CAPSULE PO SCH (09:49)
[2022-06-06] MEDS: AMLODIPINE 5 MG TABLET PO SCH (09:49)
[2022-06-06 11:39] VITALS: BP 96/63
[2022-06-06] MEDS ORDERED: IOHEXOL 300MG/ML 100 ML INFUS..BTL ONE (12:16)
[2022-06-06 16:00] VITALS: BP 91/55
--- NOTE | 2022-06-06 19:45 | NUR ---
Received Pt from Day shift. Pt is A&Ox4 and is cooperative. Pt will have both nephrostomy tubes clamped. Pt has Bazan and is intact. Pt on Rm Air. Safety measures in place. Will continue to monitor.
[2022-06-06 20:00] VITALS: BP 115/66
[2022-06-06] MEDS: ATORVASTATIN 20 MG TABLET PO SCH (20:34)
[2022-06-07 04:00] VITALS: BP 100/58
--- NOTE | 2022-06-07 06:38 | NUR ---
End of Shift Note: Pt is A&Ox4 and is cooperative. Pt's urine output steadily flowed into Bazan, with 1250mL of urine output. Nephrostomy tubes are stable and there are no signs of damage or leakage. Pt on Rm Air. Safety measures in place. Will continue to monitor.
--- NOTE | 2022-06-07 07:25 | NUR ---
Pt received by AM nurse... Pt laying comfortably in bed, A7Ox3, NAD, denies complaints at present, enc to ask questions and verbalize concerns. Bazan to gravity draining adequate amount of clear yellow urine, bilat nephrotomy tube intact, + clamped in progress. Will continue to monitor status for change.
[2022-06-07 07:27] LABS: CARBON DIOXIDE 23 mmol/L (21-32); CHLORIDE 104 mmol/L (98-107); CREATININE 1.7 mg/dL (0.6-1.3); GLUCOSE 108 mg/dL (74-106); POTASSIUM 4.1 mmol/L (3.5-5.1); UREA NITROGEN, BLOOD 33 mg/dL (7-18)
[2022-06-07 08:00] VITALS: BP 124/62
[2022-06-07] MEDS: PROTEIN SUPPLEMENT (PROSTAT) 30 ML LIQUID PO SCH (08:00)
[2022-06-07] MEDS: ENSURE CLEAR 240 ML LIQUID (MIX BERRY) PO SCH (08:41)
[2022-06-07] MEDS: DOCUSATE SODIUM 100 MG CAPSULE PO SCH (09:08)
[2022-06-07] MEDS: PANTOPRAZOLE ORAL SUSPENSION 40 MG SUSPDR.PKT PO SCH (09:08)
[2022-06-07] MEDS: AMLODIPINE 5 MG TABLET PO SCH (09:09)
[2022-06-07] MEDS: LABETALOL HCL 100 MG TABLET PO SCH (09:10)
[2022-06-07] MEDS: ALLOPURINOL 100 MG TABLET PO SCH ×2 (09:10→16:30)
[2022-06-07] MEDS: HEPARIN SODIUM,PORCINE 5,000 UNITS/ML VIAL SQ SCH ×2 (09:11→20:32)
[2022-06-07 12:02] VITALS: BP_SYST 112; BP_SYST 120; BP_DIAS 52; BP_DIAS 62
[2022-06-07 15:55] VITALS: BP 92/54
[2022-06-07] MEDS: diphenhydrAMINE 50 MG CAPSULE PO PRN (18:21)
--- NOTE | 2022-06-07 19:12 | NUR ---
Pt sitting comfortably in bed, talking on telephone, NAD, Pt stable at present, treatment plan explained and report given to pt nurse AURE Menon.
[2022-06-07 20:00] VITALS: BP 117/59
[2022-06-07] MEDS: ATORVASTATIN 20 MG TABLET PO SCH (20:58)
--- NOTE | 2022-06-08 | NUR ---
NSG: Resting in bed comfortably. no s/s of pain or discomfort noted at this time. call light w/in reach.
[2022-06-08 04:00] VITALS: BP 94/57
--- NOTE | 2022-06-08 06:07 | NUR ---
NSG: Remain calm and cooperative with meds. no c/o pain or discomfort at this time. f/c patent draining yellow urine. No s/s of physical or respiratory distress. Encouraged patient to use call light for help when needed with good understanding.call light w/in reach.
[2022-06-08 07:04] LABS: CARBON DIOXIDE 23 mmol/L (21-32); CHLORIDE 105 mmol/L (98-107); CREATININE 1.8 mg/dL (0.6-1.3); GLUCOSE 105 mg/dL (74-106); POTASSIUM 4.1 mmol/L (3.5-5.1); UREA NITROGEN, BLOOD 33 mg/dL (7-18)
--- NOTE | 2022-06-08 07:18 | NUR ---
Pt resting comfortably in bed, stable, NAD, A&Ox3, denies complaints at present, bilateral Nephrostomy tube intact, Bazan to gravity, draining adequate amount of clear yellow urine, plan for removal of nephrostomy tube by radiology for possible discharge.
--- NOTE | 2022-06-08 07:30 | NUR ---
Pt eating breakfast, NAD, A&OX3, denies complaints at present, In stable condition, kimberly meds well, s/p removal of bilat nephrotomy tube by MD, dressing to bilateral site C/D/I, no drainage noted, benavides draining adequate amount of clear yellow urine. Will continue to monitor status for change.
[2022-06-08] MEDS ORDERED: DEXAMETHASONE SOD PHOSPHATE 4 MG INJ IM ONE (07:45)
[2022-06-08] MEDS ORDERED: FAMOTIDINE 20 MG TABLET PO ONE (07:45)
[2022-06-08 08:00] VITALS: BP 116/68
[2022-06-08] MEDS: PROTEIN SUPPLEMENT (PROSTAT) 30 ML LIQUID PO SCH (08:00)
[2022-06-08] MEDS: AMLODIPINE 5 MG TABLET PO SCH (08:46)
[2022-06-08] MEDS: HEPARIN SODIUM,PORCINE 5,000 UNITS/ML VIAL SQ SCH (08:47)
[2022-06-08] MEDS: PANTOPRAZOLE ORAL SUSPENSION 40 MG SUSPDR.PKT PO SCH (08:48)
[2022-06-08] MEDS: LABETALOL HCL 100 MG TABLET PO SCH (08:50)
[2022-06-08] MEDS: DOCUSATE SODIUM 100 MG CAPSULE PO SCH (08:51)
[2022-06-08] MEDS: ALLOPURINOL 100 MG TABLET PO SCH (08:51)
[2022-06-08] MEDS: ENSURE CLEAR 240 ML LIQUID (MIX BERRY) PO SCH (08:54)
[2022-06-08 11:29] VITALS: BP 119/67
[2022-06-08 13:00] VITALS: BP 99/51
--- NOTE | 2022-06-08 13:30 | NUR ---
Pt discharged as ordered via ambulance back to SNF, d/c instruction given, verbalize understanding, In stable condition, denies complaints, bilateral flank dressing C/D/I, benavides draining adequate amount of urine, pt discharged with benavides back to SNf, HUMBERTO midline discontinued upon discharge. Report called to receiving nurse. ,
== END 2022-06-08 13:30 | DRG 698 ==
LOC: ER 16:02 → MEDSURG3 18:00
PROVIDERS: ADMIT Nurse Practitioner Acute Care; ATTEND Nurse Practitioner Acute Care
PROC: 0T25X0Z Change Drainage Device in Kidney, External Approach (ICD-10-PCS; principal; 2022-05-29)
PROC: BT131ZZ Fluoroscopy of Bilateral Kidneys using Low Osmolar Contrast (ICD-10-PCS; 2022-05-29)
PROC: 05H633Z Insertion of Infusion Device into Left Subclavian Vein, Percutaneous Approach (ICD-10-PCS; 2022-05-31)
PROC: B547ZZA Ultrasonography of Left Subclavian Vein, Guidance (ICD-10-PCS; 2022-05-31)
DX: T83.032A Leakage of nephrostomy catheter, initial encounter (principal); N17.0 Acute kidney failure with tubular necrosis; E87.22 Chronic metabolic acidosis; E87.20 Acidosis, unspecified; N13.6 Pyonephrosis; B96.20 Unspecified Escherichia coli [E. coli] as the cause of diseases classified elsewhere; E78.5 Hyperlipidemia, unspecified; E83.42 Hypomagnesemia; M10.9 Gout, unspecified; N18.9 Chronic kidney disease, unspecified; Y83.8 Other surgical procedures as the cause of abnormal reaction of the patient, or of later complication, without mention of misadventure at the time of the procedure; Y92.129 Unspecified place in nursing home as the place of occurrence of the external cause; N13.9 Obstructive and reflux uropathy, unspecified; D63.8 Anemia in other chronic diseases classified elsewhere; M62.81 Muscle weakness (generalized); K21.9 Gastro-esophageal reflux disease without esophagitis; K29.70 Gastritis, unspecified, without bleeding; I12.9 Hypertensive chronic kidney disease with stage 1 through stage 4 chronic kidney disease, or unspecified chronic kidney disease; G62.9 Polyneuropathy, unspecified; M89.8X9 Other specified disorders of bone, unspecified site; Y73.2 Prosthetic and other implants, materials and accessory gastroenterology and urology devices associated with adverse incidents
CPT/HCPCS: 36415; 76770; 83550; 83735; 84100; 85025; A4663; A6209; C9113; G0378; J0696; J1100; J1644; J3475; J7040; J8499; Q0163; Q9967